=== PATIENT | male | born 1965 | race Caucasian/White ===

== ENCOUNTER 2019-07-21 14:22 | Outpatient (REF) | payer OTHER, SELFPAY ==
[2019-07-21 22:28] LABS: ALT 24 U/L (16-63); AST 19 U/L (15-37); Albumin 4.1 g/dL (3.4-5.0); Alkaline Phosphatase 82 U/L (46-116); Anion Gap 9.7 mmol/L (3-11); BUN 17 mg/dL (7-18); CO2 27.3 mmol/L (21.0-32.0); Calcium 8.9 mg/dL (8.5-10.1); Chloride 106 mmol/L (98-107); Glucose 95 mg/dL (70-100); Potassium 4.3 mmol/L (3.5-5.1); Sodium 143 mmol/L (136-145); TSH (W/Ref FT4) 2.31 uIU/mL (0.36-3.74); Total Protein 7.3 g/dL (6.4-8.2)
[2019-07-23 10:53] LABS: Hepatitis C Ab w Rflx HCV PCR Negative (NEGAT)
[2019-07-23 13:25] LABS: Vitamin D 25 Total 47.8 ng/ml (30-100)
== END 2019-07-21 14:42 ==
LOC: NCHCN 14:22
PROVIDERS: PCP Internal Medicine; Visit Provider Specialist/Technologist Athletic Trainer
DX: Z00.00 Encounter for general adult medical examination without abnormal findings (principal); F43.0 Acute stress reaction; F31.9 Bipolar disorder, unspecified; Z11.59 Encounter for screening for other viral diseases
CPT/HCPCS: 80053; 82306; 86803; 84443

== ENCOUNTER 2020-02-15 13:20 | Outpatient (REF) | payer OTHER, SELFPAY ==
[2020-02-17 11:32] LABS: PSA, Screening 0.7 ng/mL (0.0-3.5)
== END 2020-02-15 13:40 ==
LOC: NCHCN 13:20
PROVIDERS: PCP Internal Medicine; Visit Provider Nurse Practitioner Family
DX: Z12.5 Encounter for screening for malignant neoplasm of prostate (principal); N41.1 Chronic prostatitis
CPT/HCPCS: 84153

== ENCOUNTER 2021-03-20 02:39 | Outpatient (CLI) | payer OTHER, SELFPAY ==
[2021-03-20 21:39] LABS: PSA, Screening 0.7 ng/mL (0.0-3.5)
== END 2021-03-20 02:40 | disposition home or self-care (01) ==
LOC: LBO 02:39
PROVIDERS: PCP Internal Medicine; Visit Provider Nurse Practitioner Gerontology
DX: Z12.5 Encounter for screening for malignant neoplasm of prostate (principal); Z80.42 Family history of malignant neoplasm of prostate
CPT/HCPCS: 36415; 84153

== ENCOUNTER 2021-04-21 14:22 | Outpatient (REF) | payer OTHER, SELFPAY ==
[2021-04-21 20:48] LABS: HGB 14.5 g/dL (13.5-17.5); MCH 29.7 pg (27.0-33.0); MCHC 33.7 % (32.0-36.0); MCV 87.9 fL (80-95); MPV 10.4 fL (8.0-11.0); Platelet Count 246 10^3/uL (130-400); RBC 4.89 10^6/uL (4.36-5.78); RDW 11.9 % (11.8-14.1); RDW-SD 38.3 fL; WBC 5.19 10^3/uL (4.4-10.8)
[2021-04-21 20:54] LABS: Anion Gap 8.4 mmol/L (3-11); BUN 20 mg/dL (7-18); CO2 25.6 mmol/L (21.0-32.0); CREATININE 0.9 mg/dL (0.70-1.30); Calcium 8.9 mg/dL (8.5-10.1); Chloride 107 mmol/L (98-107); Glucose 97 mg/dL (74-106); Potassium 4.5 mmol/L (3.5-5.1); Sodium 141 mmol/L (136-145)
== END 2021-04-21 14:23 | disposition home or self-care (01) ==
LOC: NCHCN 14:22
PROVIDERS: PCP Internal Medicine; Visit Provider Family Medicine
DX: F31.9 Bipolar disorder, unspecified (principal)
CPT/HCPCS: 80048; 85027

== ENCOUNTER 2021-06-21 17:08 | Outpatient (REF) | payer OTHER, SELFPAY ==
[2021-06-21 21:32] LABS: Lithium 0.6 mmol/l (0.6-1.2)
[2021-06-21 21:41] LABS: BUN 22 mg/dL (7-18); CREATININE 1.2 mg/dL (0.70-1.30); Calcium 8.9 mg/dL (8.5-10.1); Chloride 107 mmol/L (98-107); Glucose 92 mg/dL (74-106); Potassium 4.3 mmol/L (3.5-5.1); Sodium 141 mmol/L (136-145); TSH 2.17 uIU/mL (0.36-3.74)
== END 2021-06-21 17:09 | disposition home or self-care (01) ==
LOC: NCHCN 17:08
PROVIDERS: PCP Internal Medicine; Referring Provider Family Medicine; Visit Provider Family Medicine
DX: F31.9 Bipolar disorder, unspecified (principal)
CPT/HCPCS: 80048; 80178; 84443

== ENCOUNTER 2022-01-01 17:49 | Outpatient (REF) | payer OTHER, SELFPAY ==
[2022-01-01 21:08] LABS: Anion Gap 6.9 mmol/L (3-11); BUN 25 mg/dL (7-18); CO2 28.1 mmol/L (21.0-32.0); CREATININE 1.2 mg/dL (0.70-1.30); Calcium 9.1 mg/dL (8.5-10.1); Chloride 108 mmol/L (98-107); Glucose 145 mg/dL (74-106); Sodium 143 mmol/L (136-145); TSH (W/Ref FT4) 3.44 uIU/mL (0.36-3.74)
[2022-01-01 21:22] LABS: Lithium 0.5 mmol/l (0.6-1.2)
== END 2022-01-01 17:50 | disposition home or self-care (01) ==
LOC: NCHCN 17:49
PROVIDERS: PCP Internal Medicine; Visit Provider Family Medicine
DX: F31.9 Bipolar disorder, unspecified (principal); M54.59 Other low back pain
CPT/HCPCS: 80048; 80178; 84443

== ENCOUNTER 2022-10-10 13:08 | Outpatient (REF) | payer OTHER, SELFPAY ==
[2022-10-10 15:18] LABS: Lithium 0.5 mmol/l (0.6-1.2)
[2022-10-10 15:25] LABS: Anion Gap 3.5 mmol/L (3-11); BUN 18 mg/dL (7-18); CO2 29.5 mmol/L (21.0-32.0); CREATININE 0.9 mg/dL (0.70-1.30); Calcium 9.1 mg/dL (8.5-10.1); Chloride 109 mmol/L (98-107); Estimated GFR 99.62 (mL/min/1.73m2); Glucose 101 mg/dL (74-106); Potassium 4.9 mmol/L (3.5-5.1); Sodium 142 mmol/L (136-145); TSH (W/Ref FT4) 3.48 uIU/mL (0.36-3.74)
== END 2022-10-10 13:09 | disposition home or self-care (01) ==
LOC: NCHCN 13:08
PROVIDERS: PCP Family Medicine; Visit Provider Family Medicine
DX: F31.9 Bipolar disorder, unspecified (principal); F41.8 Other specified anxiety disorders; Z51.81 Encounter for therapeutic drug level monitoring; Z79.899 Other long term (current) drug therapy
CPT/HCPCS: 80048; 80178; 84443

== ENCOUNTER 2022-11-19 15:12 | Outpatient (REF) | payer OTHER, SELFPAY ==
[2022-11-19 18:12] LABS: PSA, Screening 0.9 ng/mL (<=3.5)
== END 2022-11-19 15:13 | disposition home or self-care (01) ==
LOC: LBN 15:12
PROVIDERS: PCP Family Medicine; Visit Provider Nurse Practitioner Gerontology
DX: N41.1 Chronic prostatitis (principal); Z12.5 Encounter for screening for malignant neoplasm of prostate; Z80.42 Family history of malignant neoplasm of prostate; G89.4 Chronic pain syndrome
CPT/HCPCS: 84153

== ENCOUNTER 2023-01-03 01:21 | Outpatient (CLI) | payer OTHER, SELFPAY ==
--- NOTE | 2023-01-03 07:00 | DI.RAD_ITS ---
Exam(s) XR FOOT RT COMPLETE EXAM: XR FOOT RT COMPLETE CLINICAL HISTORY: foot pain,capsulitis, m79.673,m77.9. TECHNIQUE: 2D digital imaging was performed. Three views. COMPARISON: No exams were available for comparison FINDINGS: BONES: No acute fracture is present. No bony destructive lesion is seen. JOINTS: No dislocation present. No significant degenerative changes. Plantar arch and. SOFT TISSUE: Normal. IMPRESSION: Unremarkable radiographs of the right foot. DATA REPOSITORY: RADIATION DOSE DELIVERED:
== END 2023-01-03 01:41 ==
LOC: DI 01:21
PROVIDERS: PCP Family Medicine; Visit Provider Podiatrist Foot & Ankle Surgery
DX: M79.671 Pain in right foot; M77.51 Other enthesopathy of right foot and ankle
CPT/HCPCS: 73630

== ENCOUNTER 2023-04-15 12:45 | Outpatient (REF) | payer OTHER, SELFPAY ==
[2023-04-15 15:48] LABS: Lithium 0.7 mmol/l (0.6-1.2)
[2023-04-15 15:59] LABS: Anion Gap 5.6 mmol/L (3-11); BUN 24 mg/dL (7-18); CO2 28.4 mmol/L (21.0-32.0); CREATININE 0.9 mg/dL (0.70-1.30); Calcium 8.9 mg/dL (8.5-10.1); Chloride 107 mmol/L (98-107); Estimated GFR 99.62 (mL/min/1.73m2); Glucose 106 mg/dL (74-106); Potassium 4.6 mmol/L (3.5-5.1); Sodium 141 mmol/L (136-145); TSH (W/Ref FT4) 2.51 uIU/mL (0.36-3.74)
== END 2023-04-15 12:46 | disposition home or self-care (01) ==
LOC: NCHCN 12:45
PROVIDERS: PCP Family Medicine; Visit Provider Family Medicine
DX: Z51.81 Encounter for therapeutic drug level monitoring (principal); Z00.00 Encounter for general adult medical examination without abnormal findings
CPT/HCPCS: 80048; 80178; 84443

== ENCOUNTER 2024-07-08 02:10 | Outpatient (CLI) | payer OTHER, SELFPAY ==
[2024-07-08 08:24] LABS: HCT 40.5 % (40.0-50.0); HGB 13.8 g/dL (13.5-17.5); MCH 30.2 pg (27.0-33.0); MCHC 34.1 % (32.0-36.0); MCV 89 fL (80-95); MPV 9.3 fL (8.0-11.0); Platelet Count 236 10^3/uL (130-400); RBC 4.57 10^6/uL (4.36-5.78); RDW-SD 38.9 fL; WBC 4.49 10^3/uL (4.4-10.8)
[2024-07-08 08:54] LABS: ALT 19 U/L (16-63); AST 15 U/L (15-37); Albumin 3.8 g/dL (3.4-5.0); Alkaline Phosphatase 99 U/L (46-116); Anion Gap 5.5 mmol/L (3-11); BUN 20 mg/dL (7-18); Bilirubin, Total 0.68 mg/dL (0.2-1.0); CO2 28.5 mmol/L (21.0-32.0); CREATININE 1.1 mg/dL (0.70-1.30); Calculated LDL 99 mg/dL (<100); Chloride 106 mmol/L (98-107); Cholesterol 163 mg/dL (<200); Estimated GFR 77.33 (mL/min/1.73m2); Glucose 105 mg/dL (74-106); HDL Cholesterol 52 mg/dL (40-60); Potassium 4.4 mmol/L (3.5-5.1); Sodium 140 mmol/L (136-145); TSH (W/Ref FT4) 4.29 uIU/mL (0.36-3.74); Total Protein 7.4 g/dL (6.4-8.2); Triglyceride 60 mg/dL (<150)
[2024-07-08 09:11] LABS: Lithium 0.5 mmol/L (0.6-1.2)
[2024-07-08 09:47] LABS: FREE T4 0.88 ng/dL (0.76-1.46)
== END 2024-07-08 02:11 | disposition home or self-care (01) ==
LOC: LBO 02:10
PROVIDERS: PCP Family Medicine; Visit Provider Family Medicine
DX: Z00.00 Encounter for general adult medical examination without abnormal findings (principal); F31.9 Bipolar disorder, unspecified
CPT/HCPCS: 36415; 80053; 80061; 85027; 80178; 84439; 84443

== ENCOUNTER 2024-11-23 18:47 | Observation (INO) | payer OTHER, SELFPAY ==
[2024-11-23 18:48] VITALS: BP 158/93; PULSE 64; RESP 18; TEMP 36.6; O2SAT 98
--- NOTE | 2024-11-23 19:11 | ED.GENADUL_ITS ---
Discharge Plan Disposition Patient Disposition: Admit to [facility] Condition: Stable Discharge Details Chief Complaint: Abd Prob Clinical Impression: Acute appendicitis Primary Care Provider: Luis Noble ED Provider: Prudencio Melvin Home Meds and New Rx's Prescriptions: No Action lamotrigine 25 mg tablet 25 mg PO TID lithium carbonate [Lithobid] 300 mg tablet extended release See Rx Instructions PO DAILY Rx Instructions: 300mg Qam and 600mg Qpm orally daily; multivitamin Tablet 1 tab PO DAILY omega 2-vea-rmx-fish oil [Fish Oil] 1,000 mg (120 mg-180 mg) capsule 1 cap PO DAILY ascorbic acid (vitamin C) 1,000 mg tablet 1 g PO DAILY coenzyme Q10 [Co Q-10] 30 mg capsule 60 mg PO DAILY cholecalciferol (vitamin D3) 10 mcg/mL (400 unit/mL) drops 10 mcg PO DIRECTED HPI General Mode of arrival: ambulatory . Date/Time Provider Initiated Documentation: 11/23/24 18:48 . Limitations to Documentation: no limitations . Information obtained by: patient . History of Present Illness 59 year old M presents to the emergency department with the chief complaint of rlq pain, described as moderate, Quality is described as sharp, Patient abdomen. Patient started experiencing this day(s) (2) and it has been intermittent. No relieving factors improve symptom(s), No exacerbating factors reported . Patient notes denies chest pain, nausea/vomiting and shortness of breath. Patient did receive the following treatments prior to arrival, none Related Data Home Medications ?Medication ?Instructions ?Recorded ?Confirmed ascorbic acid (vitamin C) 1,000 mg 1 g PO DAILY 04/06/22 11/23/24 tablet cholecalciferol (vitamin D3) 10 10 mcg PO DIRECTED 04/06/22 11/23/24 mcg/mL (400 unit/mL) oral drops coenzyme Q10 30 mg capsule (Co 60 mg PO DAILY 04/06/22 11/23/24 Q-10) multivitamin 1 tab PO DAILY 04/06/22 11/23/24 omega 2-idl-osy-fish oil 1,000 mg 1 cap PO DAILY 04/06/22 11/23/24 (120 mg-180 mg) capsule (Fish Oil) lamotrigine 25 mg tablet 25 mg PO TID 05/10/22 11/23/24 lithium carbonate 300 mg See Rx Instructions PO DAILY 12/31/22 11/23/24 tablet,extended release (Lithobid) Allergies Allergy/AdvReac Type Severity Reaction Status Date / Time No Known Allergies Allergy Verified 11/23/24 18:51 General Stated Complaint: Abd Prob LYLA: 3 Review of Systems All systems reviewed & are unremarkable except as noted in HPI and below Constitutional Constitutional: Denies chills, Denies fever(s) and Denies weakness Cardiovascular Cardiovascular: Denies chest pain and Denies dyspnea Respiratory Respiratory: Denies cough and Denies dyspnea Gastrointestinal Gastrointestinal: Reports abdominal pain, Denies nausea and Denies vomiting Integumentary/Breasts Skin/Breast: Denies rash Neurologic Neurologic: Denies weakness Exam Const General: no acute distress Orientation: alert HENMT Head: normal to inspection Ears: external ears normal General nose exam: external nose normal Mouth: moist mucous membranes Eyes General: appearance normal, both eyes and all related structures Neck Neck: normal visual inspection Resp Effort & Inspection: normal respiratory effort and able to speak in complete sentences Cardio Rate: regular rate GI Palpation: soft and tender Skin General skin exam: no rashes or lesions noted Neuro General: patient alert and patient oriented x3 Extrem General: normal to inspection Psych Mental Status: mental status grossly normal Course Vital Signs Vital signs: Vital Signs Temperature 36.6 C 11/23/24 18:48 Pulse 64 11/23/24 18:48 Respiratory Rate 18 11/23/24 18:48 Blood Pressure 158/93 H 11/23/24 18:48 Pulse Oximetry 98 11/23/24 18:48 Temperature 36.6 C 11/23/24 18:48 Temperature Source Oral 11/23/24 18:48 Pulse 64 11/23/24 18:48 Respiratory Rate 18 11/23/24 18:48 Blood Pressure 158/93 H 11/23/24 18:48 Blood Pressure Position Sitting 11/23/24 18:48 Pulse Oximetry 98 11/23/24 18:48 Oxygen Delivery Method Room Air 11/23/24 18:48 Oxygen Flow Rate 0 11/23/24 18:48 Pain Level 6 11/23/24 18:48 Medical Decision Making 59-year-old male with a history of bipolar, depression, denies any prior abdominal surgeries comes in with several days of right lower quadrant pain. He says the pain is intermittent and usually only mild and worse has been 6 out of 10. He denies any changes in urinary bowel habits. No vomiting. No fevers. He is well-appearing speaking in full sentences. His abdomen is soft and nondistended. He has no left lower quadrant tenderness but does have right lower quadrant tenderness without guarding. Given the location of the pain we will proceed with CBC, CMP, lipase and CT abdomen pelvis to evaluate for possible appendicitis. Patient stable, CT shows signs of early appendicitis with enlarged appendix which measures up to 10 mm some mild inflammatory stranding no abscess or perforation. Discussed with patient and he is agreeable to admission for appendectomy. Will consult with general surgery. Differential Diagnosis Differential Diagnosis: Colitis, appendicitis, kidney stone Quality:SDOH Health Related Social Needs: No Data to Display PFSH All Active Problems (Updated 11/23/24 @ 21:08 by Prudencio Melvin MD) Acute appendicitis (Acute) Metatarsalgia, right foot (Acute) Hallux limitus of right foot (Acute) Achilles tendon contracture, bilateral (Acute) Foot pain (Acute) Capsulitis (Acute) Conductive hearing loss in left ear (Acute) Otosclerosis of left ear (Acute) Family history of prostate cancer (Acute) father Chronic prostatitis/chronic pelvic pain syndrome (Acute) Medical History Acute low back pain Olecranon bursitis, right elbow Bipolar 1 disorder Situational anxiety Knee joint pain Depression with anxiety Melanoma Surgical History S/P left knee arthroscopy H/O melanoma excision Family History Father Prostate cancer Skin cancer Social History Smoking/Tobacco Use Status: Never Smoking risk assessment performed?: Yes Alcohol Intake: current Alcohol Intake frequency: a few times a week Drug use: Occasionally Substance use type: marijuana Housing: house Do you feel safe at home: Yes Do you feel safe in your relationship?: Yes
[2024-11-23 19:19] LABS: Abs Immature Grans 0.01 10^3/uL (0.0-0.06); Absolute Basophil Count 0.04 10^3/uL (0.0-0.2); Absolute Eosinophil Count 0.22 10^3/uL (0.0-0.7); Absolute Lymphocyte Count 1.37 10^3/uL (1.2-3.4); Basophils % 0.9 %; Eosinophils % 4.7 %; HCT 40.4 % (40.0-50.0); HGB 13.5 g/dL (13.5-17.5); Immature Grans % 0.2 %; Lymphocytes % 29.5 %; MCH 29.9 pg (27.0-33.0); MCHC 33.4 % (32.0-36.0); MCV 89 fL (80-95); MPV 9.2 fL (8.0-11.0); Monocytes % 10.8 %; Neutrophils % 53.9 %; Platelet Count 244 10^3/uL (130-400); RBC 4.52 10^6/uL (4.36-5.78); RDW 12.5 % (11.8-14.1); RDW-SD 41.1 fL; WBC 4.64 10^3/uL (4.4-10.8)
--- NOTE | 2024-11-23 19:34 | DI.CT_ITS ---
Exam(s) CT ABDOMEN PELVIS W EXAM: CT ABDOMEN PELVIS W CLINICAL HISTORY: rlq abdominal pain TECHNIQUE: Imaging Protocol: Axial computed tomography images with coronal and sagittal reformatted images were created and reviewed. CONTRAST MATERIAL: Intravenous: Omnipaque 350 Contrast volume:100 mL Oral: No COMPARISON: No exams were available for comparison FINDINGS: ABDOMEN: Lung Bases: There is a calcified granuloma in the right lower lobe. Liver: Normal density. There are 2 small cysts in the liver. No suspicious hepatic masses are present . Portal, Superior Mesenteric, and Splenic Veins: Unremarkable. Gallbladder and Biliary Tract: No radiodense calculus or dilation. Pancreas: Normal density, no abnormal calcifications or inflammatory process. Spleen: Normal. Adrenals: No masses seen. Kidneys: Normal size, contour and axis. No radiodense stones or obstructive uropathy. No masses seen. Abdominal Aorta: Abdominal portion non-dilated. Mild atherosclerotic calcification is present. Bowel: No obstruction or bowel wall thickening. The appendix measures 1.2 cm. There are mild Zonia serafin endiceal inflammatory changes present. The findings are most suggestive of acute appendicitis. No abs cess or pneumoperitoneum. Peritoneal Cavity: No ascites, collection or mesenteric inflammatory response. No free air. Lymph Nodes: Within normal limits. Bones: Within normal limits for the patient's age. Soft Tissues: Unremarkable. PELVIS: Bladder: Symmetric distention, no gross wall thickening. Reproductive Organs: Unremarkable as visualized. Lymph Nodes: Within normal limits. Bones: Within normal limits for the patient's age. IMPRESSION: Acute appendicitis. No abscess or free air. RADIATION DOSE DELIVERED: 417.45mGy.cm Total DLP DATA REPOSITORY: All CT scans at this facility are submitted to the National Radiology Data Registry (NRDR) Dose Index Registry (DIR) with the [employer] (ACR). RADIATION OPTIMIZATION: All CT scans at this facility use at least one of these dose optimization te chniques: automated exposure control; mA and/or kV adjustment per patient size (includes targeted exa ms where dose is matched to clinical indication); or iterative reconstruction.
[2024-11-23 19:48] LABS: ALT 30 U/L (16-63); AST 16 U/L (15-37); Albumin 3.8 g/dL (3.4-5.0); Alkaline Phosphatase 102 U/L (46-116); Anion Gap 3.1 mmol/L (3-11); BUN 22 mg/dL (7-18); Bilirubin, Total 0.52 mg/dL (0.2-1.0); CO2 29.9 mmol/L (21.0-32.0); Chloride 110 mmol/L (98-107); Glucose 94 mg/dL (74-106); Lipase 74 U/L (<78); Potassium 4.3 mmol/L (3.5-5.1); Sodium 143 mmol/L (136-145); Total Protein 7.4 g/dL (6.4-8.2)
[2024-11-23 19:51] LABS: Bilirubin Negative (Negative); Blood Negative (Negative); Clarity Clear (Clear); Glucose Negative (Negative); Ketones Negative (Negative); Leukocyte Esterase Negative (Negative); Nitrite Negative (Negative); Urobilinogen 0.2 mg/dL (Up to 0.2); pH 5.5 (5-8)
--- NOTE | 2024-11-23 20:28 | DI.VRAD_ITS ---
Addendum created by Steven Rosenberg MD on 11/23/2024 8:40:44 PM EST: THIS REPORT CONTAINS FINDINGS THAT MAY BE CRITICAL TO PATIENT CARE. The findings were verbally communicated by me to Prudencio Melvin via telephone conference at 8:40 PM EST on 11/23/2024. The findings were acknowledged and understood. Initial report created on 11/23/2024 8:28:04 PM EST: PROCEDURE INFORMATION: Exam: CT Abdomen And Pelvis With Contrast Exam date and time: 11/23/2024 7:16 PM Age: 59 years old Clinical indication: Other: Rlq abdominal pain TECHNIQUE: Imaging protocol: Computed tomography of the abdomen and pelvis with contrast. Contrast material: OMNIPAQUE 350; Contrast volume: 75 ml; Contrast route: INTRAVENOUS (IV); COMPARISON: No relevant prior studies available. FINDINGS: Lungs: Visualized lung bases are clear. Liver: Normal. No mass or intrahepatic biliary ductal dilatation. Gallbladder and biliary ducts: Normal. No calcified stones. No ductal dilation. Pancreas: Normal. No mass or ductal dilation. Spleen: Normal. No splenomegaly. Adrenal glands: Normal. No mass. Kidneys and ureters: Normal. No hydronephrosis, calculus, cyst or mass. Stomach and bowel: Unremarkable. No significant dilatation or obstruction. No mucosal thickening or visible mass. Appendix: The appendix is thickened to 10 mm with mild associated inflammatory stranding. No abscess or perforation. Intraperitoneal space: Unremarkable. No free air. No significant fluid collection. Vasculature: Unremarkable. No abdominal aortic aneurysm or significant atherosclerosis. Lymph nodes: Small right lower quadrant mesenteric lymph nodes measuring up to 10 mm. Urinary bladder: No mass or wall thickening. Reproductive: Unremarkable as visualized. Bones/joints: Unremarkable. No acute fracture. No lytic lesion. Soft tissues: Unremarkable. IMPRESSION: Thickened appendix suspicious for early acute appendicitis. Dictated and Authenticated by: Steven Rosenberg MD. Orderin Olegario Flannery MD
[2024-11-23] MEDS: Normal Saline - Diluent 50 ML VIAL IJ (20:46)
[2024-11-23] MEDS: Omnipaque 350 MG/ML 100 ML BTL 75 ML IJ (20:47)
--- NOTE | 2024-11-23 21:10 | SCONE_ITS ---
Date of service: 11/23/24 Time of Service: 21:10 Assessment and Plan Assessment and plan (1) Acute appendicitis: Status: Acute Assessment and plan: 59 yo man with acute appendicitis on imaging and clinically. Etiology could be post-viral mesenteric lymph node swelling. HD stable and without acute abdomen. PLAN: IV abx Lap appendectomy in the morning. History of Present Illness Narrative: 59 yo with abdominal pain x2 days. CT shows inflammatory changes around the appendix. PFSH All Active Problems (Updated 11/23/24 @ 21:08 by Prudencio Melvin MD) Acute appendicitis (Acute) Metatarsalgia, right foot (Acute) Hallux limitus of right foot (Acute) Achilles tendon contracture, bilateral (Acute) Foot pain (Acute) Capsulitis (Acute) Conductive hearing loss in left ear (Acute) Otosclerosis of left ear (Acute) Family history of prostate cancer (Acute) father Chronic prostatitis/chronic pelvic pain syndrome (Acute) Medical History Acute low back pain Olecranon bursitis, right elbow Bipolar 1 disorder Situational anxiety Knee joint pain Depression with anxiety Melanoma Surgical History S/P left knee arthroscopy H/O melanoma excision Family History Father Prostate cancer Skin cancer Social History Smoking/Tobacco Use Status: Never Smoking risk assessment performed?: Yes Alcohol Intake: current Alcohol Intake frequency: a few times a week Drug use: Occasionally Substance use type: marijuana Housing: house Do you feel safe at home: Yes Do you feel safe in your relationship?: Yes Exam Narrative Exam Narrative: Reportedly HD stable, not toxic. Abdomen: Soft, mild tenderness but no peritoneal signs. Results Last Vital Signs Temp 97.9 F 11/23/24 18:48 Pulse 64 11/23/24 18:48 Resp 18 11/23/24 18:48 BP 158/93 H 11/23/24 18:48 Pulse Ox 98 11/23/24 18:48 Labs 11/23/24 19:10 11/23/24 19:10 Labs: Laboratory Results - last 24 hr 11/23/24 11/23/24 19:10 19:44 WBC 4.64 RBC 4.52 Hgb 13.5 Hct 40.4 MCV 89 MCH 29.9 MCHC 33.4 RDW 12.5 Plt Count 244 MPV 9.2 Immature Gran % 0.2 Neutrophils % 53.9 Lymphocytes % 29.5 Monocytes % 10.8 Eosinophils % 4.7 Basophils % 0.9 Nucleated RBC % 0.0 Absolute Neutrophils 2.50 Absolute Lymphocytes 1.37 Absolute Monocytes 0.50 Absolute Eosinophils 0.22 Absolute Basophils 0.04 Sodium 143 Potassium 4.3 Chloride 110 H Carbon Dioxide 29.9 Anion Gap 3.1 BUN 22 H Creatinine 1.0 Est GFR (CKD-EPI 2020) 86.70 Glucose 94 Calcium 9.0 Magnesium 2.0 Total Bilirubin 0.52 AST 16 ALT 30 Alkaline Phosphatase 102 Total Protein 7.4 Albumin 3.8 Lipase 74 Urine Color Yellow Urine Clarity Clear Urine pH 5.5 Ur Specific [place] 1.020 Urine Protein Negative Urine Ketones Negative Urine Blood Negative Urine Nitrite Negative Urine Bilirubin Negative Urine Urobilinogen 0.2 Ur Leukocyte Esterase Negative Urine Glucose Negative
[2024-11-23 21:22] VITALS: PULSE 64; O2SAT 97
[2024-11-23 21:23] VITALS: BP 144/110; PULSE 62; O2SAT 99
[2024-11-23 21:24] VITALS: BP 145/90; PULSE 64
--- NOTE | 2024-11-23 21:49 | W.PC.ACHO ---
Registration Status: Primary Language: Preferred Language: ED Information & Data Chief Complaint Abd Prob 11/23/24 19:11 Triage Note Sent from [facility], 11/23/24 18:48 concerns for appendicitis. c /o RLQ pain, started saturday morning, no n/v/d, normal bowel movements, no S&S. states worse after eats. 6/10 pain, comes and goes. no meds [employer]. Medical / Surgical History (Last Reviewed 12/25/23 @ 09:25 by Mari Matthews DNP) Acute low back pain Olecranon bursitis, right elbow Bipolar 1 disorder Situational anxiety Knee joint pain Depression with anxiety Melanoma (Last Reviewed 12/25/23 @ 09:25 by Mari Matthews DNP) S/P left knee arthroscopy H/O melanoma excision Most Recent Vital Signs Temperature 36.6 C 11/23/24 18:48 Temperature Source Oral 11/23/24 18:48 Pulse 64 11/23/24 21:24 Respiratory Rate 18 11/23/24 18:48 Blood Pressure 145/90 H 11/23/24 21:24 Blood Pressure Mean 109 11/23/24 21:24 Blood Pressure Position Sitting 11/23/24 18:48 Pulse Oximetry 99 11/23/24 21:23 Oxygen Delivery Method Room Air 11/23/24 18:48 Oxygen Flow Rate 0 11/23/24 18:48 Pain Level 6 11/23/24 18:48 Allergies No Known Allergies Allergy (Verified 11/23/24 18:51) Precautions Isolation Standard precaution 11/23/24 18:50 Active Medications Generic Name Dose Route Start Last Admin Trade Name Becky PRN Reason Stop Dose Admin Iohexol 75 ml 11/23/24 21:00 11/23/24 20:47 Omnipaque 350 Mg/Ml 100 Ml Btl IJ 12/23/24 23:59 75 ml DIRECTED INDRA Administration Sodium Chloride 50 ml 11/23/24 21:00 11/23/24 20:46 Normal Saline - Diluent 50 Ml Vial IJ 50 ml .FOR DI USE INDRA Administration IV IV Catheter Type [Right Saline Lock Antecubital] IV Catheter Gauge [Right 18 Antecubital] Diet Orders Category Date Time Status Nothing Per Oral [DIET] Nutrition 11/23/24 Dinner Active Diagnostics 11/23/24 11/23/24 Range/Units 19:44 19:10 WBC 4.64 (4.4-10.8) 10^3/uL RBC 4.52 (4.36-5.78) 10^6/uL Hgb 13.5 (13.5-17.5) g/dL Hct 40.4 (40.0-50.0) % MCV 89 (80-95) fL MCH 29.9 (27.0-33.0) pg MCHC 33.4 (32.0-36.0) % RDW 12.5 (11.8-14.1) % Plt Count 244 (130-400) 10^3/uL MPV 9.2 (8.0-11.0) fL Immature Gran % 0.2 % Neutrophils % 53.9 % Lymphocytes % 29.5 % Monocytes % 10.8 % Eosinophils % 4.7 % Basophils % 0.9 % Nucleated RBC % 0.0 (0.0-0.3) % Absolute Neutrophils 2.50 (1.2-6.7) 10^3/uL Absolute Lymphocytes 1.37 (1.2-3.4) 10^3/uL Absolute Monocytes 0.50 (0.1-0.8) 10^3/uL Absolute Eosinophils 0.22 (0.0-0.7) 10^3/uL Absolute Basophils 0.04 (0.0-0.2) 10^3/uL Sodium 143 (136-145) mmol/L Potassium 4.3 (3.5-5.1) mmol/L Chloride 110 H (98-107) mmol/L Carbon Dioxide 29.9 (21.0-32.0) mmol/L Anion Gap 3.1 (3-11) mmol/L BUN 22 H (7-18) mg/dL Creatinine 1.0 (0.70-1.30) mg/dL Est GFR (CKD-EPI 2020) 86.70 (mL/min/1.73m2) Glucose 94 (74-106) mg/dL Calcium 9.0 (8.5-10.1) mg/dL Magnesium 2.0 (1.8-2.4) mg/dL Total Bilirubin 0.52 (0.2-1.0) mg/dL AST 16 (15-37) U/L ALT 30 (16-63) U/L Alkaline Phosphatase 102 (46-116) U/L Total Protein 7.4 (6.4-8.2) g/dL Albumin 3.8 (3.4-5.0) g/dL Lipase 74 (<78) U/L Urine Color Yellow (Yellow) Urine Clarity Clear (Clear) Urine pH 5.5 (5-8) Ur Specific [place] 1.020 (1.005-1.025) Urine Protein Negative (Neg-Trace) mg/dL Urine Ketones Negative (Negative) mg/dL Urine Blood Negative (Negative) Urine Nitrite Negative (Negative) Urine Bilirubin Negative (Negative) Urine Urobilinogen 0.2 (Up to 0.2) mg/dL Ur Leukocyte Esterase Negative (Negative) Urine Glucose Negative (Negative) mg/dL Intake and Output - 24 Hour Total 11/23/24 18:47 thru 11/23/24 18:48 Weight 84.368 kg Falls Risk Assessment History of Falls No History 11/23/24 19:14 Contributing Factors No Factors 11/23/24 19:14 Ambulatory Aids Independent 11/23/24 19:14 Tubes/Lines None 11/23/24 19:14 Gait Evaluation No gait disturbance 11/23/24 19:14 Cognition No cognitive impairment 11/23/24 19:14 Fall Total Score 0 11/23/24 19:14 Level of Risk Standard/Low Risk 11/23/24 19:14 Problems (Last Reviewed 12/25/23 @ 09:25 by Mari Matthesw DNP) Acute appendicitis (Acute) v v v v v v v v v Sending and/or Receiving Nurses: Please use comment section below to note any information pertinent to the patient hand-off not included above. Information / Comments: Report received from: Francisco-- all questions asked, answered. Patient to go to [facility].
[2024-11-23 22:00] VITALS: BP 133/86; PULSE 63; RESP 16; TEMP 36.9; O2SAT 98
[2024-11-23] MEDS: Heparin 5,000 UNITS/ML VIAL 5000 UNITS SC (22:28)
[2024-11-23] MEDS: Normal Saline 1,000 ML 100 ML IV (22:29)
[2024-11-23] MEDS: Normal Saline Flush 10 ML SYR IVP (22:30)
[2024-11-23 22:42] VITALS: PULSE 63; RESP 16; TEMP 36.9; O2SAT 98
[2024-11-24] VITALS (27 sets, daily range): BP systolic 110–144; BP diastolic 75–95; PULSE 62–89; RESP 12–21; TEMP 36.4–37.1; O2SAT 94–99; BMI 28.5
[2024-11-24] MEDS: Heparin 5,000 UNITS/ML VIAL 5000 UNITS SC ×3 (05:44→22:15)
--- NOTE | 2024-11-24 08:20 | W.PM.PROGNOT ---
Date of Service Date of service: 11/24/24 Time of Service: 09:26 Assessment and Plan Assessment and plan (1) Acute appendicitis: Status: Acute Assessment and plan: 59-year-old man with acute appendicitis. We had a long and detailed discussion about management strategies. Overall I recommended laparoscopic appendectomy. The patient is in agreement with the indication, the likely benefits as well as the risks associated with surgery must proceed. Overall plan: Laparoscopic appendectomy Subjective Subjective Interval history since last seen: Patient's pain is drastically improved. Still sore when pushed on. No nausea. No vomiting. No fevers. He actually admits he thinks this happened to him once before earlier in the summer. It went away after couple days. Exam Narrative Exam Narrative: Gen: Non-toxic, comfortable and interactive Neuro: Alert and oriented x3 Psych: Good mood and affect. Good insight and understanding into condition. Chest: Non-labored breathing, no wheezing, no visible shortness of breath. Heart: Regular Abdomen: Soft, nondistended, focal tenderness at McBurney's point but no peritoneal signs. Objective Last Vital Signs Temp 98.8 F 11/24/24 07:34 Pulse 71 11/24/24 07:34 Resp 19 11/24/24 07:34 BP 110/83 11/24/24 07:34 Pulse Ox 98 11/24/24 07:34 Laboratory Results - last 24 hr 11/23/24 11/23/24 19:10 19:44 WBC 4.64 RBC 4.52 Hgb 13.5 Hct 40.4 MCV 89 MCH 29.9 MCHC 33.4 RDW 12.5 Plt Count 244 MPV 9.2 Immature Gran % 0.2 Neutrophils % 53.9 Lymphocytes % 29.5 Monocytes % 10.8 Eosinophils % 4.7 Basophils % 0.9 Nucleated RBC % 0.0 Absolute Neutrophils 2.50 Absolute Lymphocytes 1.37 Absolute Monocytes 0.50 Absolute Eosinophils 0.22 Absolute Basophils 0.04 Sodium 143 Potassium 4.3 Chloride 110 H Carbon Dioxide 29.9 Anion Gap 3.1 BUN 22 H Creatinine 1.0 Est GFR (CKD-EPI 2020) 86.70 Glucose 94 Calcium 9.0 Magnesium 2.0 Total Bilirubin 0.52 AST 16 ALT 30 Alkaline Phosphatase 102 Total Protein 7.4 Albumin 3.8 Lipase 74 Urine Color Yellow Urine Clarity Clear Urine pH 5.5 Ur Specific [place] 1.020 Urine Protein Negative Urine Ketones Negative Urine Blood Negative Urine Nitrite Negative Urine Bilirubin Negative Urine Urobilinogen 0.2 Ur Leukocyte Esterase Negative Urine Glucose Negative PAWSS Have you Been Recently Intoxicated or Drunk Within the Last 30 days?: No Have you Ever Experienced Previous Episodes of Alcohol Withdrawal?: No Have you ever Experienced Withdrawal Seizures?: No Have you ever Experienced Delirium Tremens(DT)s?: No Have you ever undergone Alcohol Rehabilitation Treatment (i.e, inpt ot outpatient treatment programs)?: No Have you ever Experienced Blackouts?: Yes Have you ever Combined Alcohol with other Downers within the last 90 days?: No Have you ever Combined Alcohol with any other Substance of Abuse during the last 90 days?: No Positive Blood Alcohol level on Presentation? [PCS.BAL]: No Evidence of Increased Autonomic Activity (i.e. HR>120, tremor, sweating, agitation, nausea)?: No Result: 1 Time Spent with Patient Time Spent with Patient: <25 minutes Time was spent: preparing to see the patient(eg.review tests), obtaining and/or reviewing separately otained hiistory, indepentently interpreting results, counseling the patient and care coordination
[2024-11-24] MEDS: ACETAMINOPHEN 1,000 MG/100 ML BAG 400 MG IVPB ×2 (09:25→21:07)
[2024-11-24] MEDS: Normal Saline 1,000 ML 100 ML IV (09:26)
[2024-11-24] MEDS: Normal Saline Flush 10 ML SYR IVP ×4 (09:26→22:23)
--- NOTE | 2024-11-24 14:32 | ANES.PREOP_ITS ---
General Info Date of Service Date Performed: 11/24/24 Height: 5 ft 10.5 in Weight: 91.7 kg Body Mass Index (BMI): 28.5 Surgical Procedure: Operation Date: 11/24/24 13:55 Proposed Procedure Side Surgeon p Appendectomy Laparoscopic Landen Lara MD Actual Procedure Side Surgeon p Appendectomy Laparoscopic Landen Lara MD Pre-Op Diagnosis Post-Op Diagnosis Acute appendicitis Meds Allergies and Home Medications Allergies Allergy/AdvReac Type Severity Reaction Status Date / Time No Known Allergies Allergy Verified 11/23/24 18:51 Home Medication ?Medication ?Instructions ?Recorded ascorbic acid (vitamin C) 1,000 mg 1 g PO DAILY 04/06/22 tablet cholecalciferol (vitamin D3) 10 10 mcg PO DIRECTED 04/06/22 mcg/mL (400 unit/mL) oral drops coenzyme Q10 30 mg capsule (Co 60 mg PO DAILY 04/06/22 Q-10) multivitamin 1 tab PO DAILY 04/06/22 omega 0-afx-xgg-fish oil 1,000 mg 1 cap PO DAILY 04/06/22 (120 mg-180 mg) capsule (Fish Oil) lamotrigine 25 mg tablet 25 mg PO TID 05/10/22 lithium carbonate 300 mg See Rx Instructions PO DAILY 12/31/22 tablet,extended release (Lithobid) Current Visit Medications: Current Medications Generic Name Dose Route Start Last Admin Trade Name Freq PRN Reason Stop Dose Admin Fentanyl 75 mcg 11/23/24 21:13 Fentanyl 100 Mcg/2 Ml Vial IVP Q1H PRN PRN Heparin Sodium (Porcine) 5,000 units 11/23/24 22:00 11/24/24 14:11 Heparin 5,000 Units/Ml Vial SC 5,000 units Q8H INDRA Administration Sodium Chloride 1,000 mls @ 100 mls/hr 11/23/24 21:15 11/24/24 09:26 Saline 1000ml Bag IV 100 mls/hr INFUSION INDRA Administration Ringer's Solution 1,000 mls @ 125 mls/hr 11/23/24 21:15 IV INFUSION INDRA Acetaminophen 1,000 mg in 100 mls @ 400 mls/hr 11/23/24 22:00 11/24/24 09:45 Ofirmev IVPB Infused Q6H INDRA Infusion Piperacillin Sod/Tazobactam 100 mls @ 200 mls/hr 11/24/24 04:00 11/24/24 12:27 Sod 4.5 gm/ Dextrose/Water IVPB Infused Q6H INDRA Infusion IV Miscellaneous Supplies 1 each 11/23/24 21:15 Iv Access IV DIRECTED INDRA Ketorolac Tromethamine 15 mg 11/23/24 21:19 Ketorolac 15 Mg/Ml Vial IVP 11/28/24 21:59 Q8H PRN Abdominal Pain Morphine Sulfate 2 mg 11/23/24 21:14 Morphine 2 Mg/Ml Syr IVP Q1H PRN PRN Ondansetron HCl 4 mg 11/23/24 21:14 Ondansetron 4 Mg/2 Ml Vial IVP Q4H PRN PRN Sodium Chloride 0 ml 11/23/24 21:13 Normal Saline Flush 10 Ml Syr IVP PRN PRN Sodium Chloride 0 ml 11/24/24 08:30 11/24/24 09:26 Normal Saline Flush 10 Ml Syr IVP 20 ml BID INDRA Administration Sodium Chloride 0 ml 11/23/24 21:13 Normal Saline 10 Ml Vial IJ DIRECTED PRN PFSH Active Problems Active Problems: Problem Status Onset Code Acute appendicitis Acute K35.80 Metatarsalgia, right foot Acute M77.41 Hallux limitus of right foot Acute M20.5X1 Achilles tendon contracture, bilateral Acute M67.01, M67.02 Foot pain Acute M79.673 Capsulitis Acute M77.9 Conductive hearing loss in left ear Acute H90.12 Otosclerosis of left ear Acute H80.92 Family history of prostate cancer Acute Z80.42 Chronic prostatitis/chronic pelvic pain syndrome Acute N41.1, G89.4 Medical History Medical History Acute low back pain Olecranon bursitis, right elbow Bipolar 1 disorder Situational anxiety Knee joint pain Depression with anxiety Melanoma Surgical History Surgical History S/P left knee arthroscopy H/O melanoma excision Tobacco Smoking/Tobacco Use Status: Never Alcohol Alcohol Intake: current Alcohol intake frequency: a few times a week Substance Use Substance use: Occasionally Substance use type: marijuana Vital Signs and Lab Results Vital Signs Most Recent Vital Signs in EMR: Most Recent Vital Signs Temp Pulse Resp BP Pulse Ox 36.5 C 70 18 124/91 H 94 11/24/24 11:04 11/24/24 11:04 11/24/24 11:04 11/24/24 11:04 11/24/24 11:04 Lab Results 11/23/24 19:10 11/23/24 19:10 Blood Type / Crossmatch: 2 No Data to Display Complete Blood Count: 2 White Blood Count 4.64 10^3/uL (4.4-10.8) 11/23/24 19:10 Red Blood Count 4.52 10^6/uL (4.36-5.78) 11/23/24 19:10 Hemoglobin 13.5 g/dL (13.5-17.5) 11/23/24 19:10 Hematocrit 40.4 % (40.0-50.0) 11/23/24 19:10 Platelet Count 244 10^3/uL (130-400) 11/23/24 19:10 Complete Metabolic Panel: 2 Sodium 143 mmol/L (136-145) 11/23/24 19:10 Potassium 4.3 mmol/L (3.5-5.1) 11/23/24 19:10 Chloride 110 mmol/L (98-107) H 11/23/24 19:10 Carbon Dioxide 29.9 mmol/L (21.0-32.0) 11/23/24 19:10 BUN 22 mg/dL (7-18) H 11/23/24 19:10 Creatinine 1.0 mg/dL (0.70-1.30) 11/23/24 19:10 Est GFR (CKD-EPI 2020) 86.70 (mL/min/1.73m2) 11/23/24 19:10 Magnesium 2.0 mg/dL (1.8-2.4) 11/23/24 19:10 Calcium 9.0 mg/dL (8.5-10.1) 11/23/24 19:10 Albumin 3.8 g/dL (3.4-5.0) 11/23/24 19:10 Glucose 94 mg/dL (74-106) 11/23/24 19:10 Liver Function Panel: 2 Alanine Aminotransferase (ALT/SGPT) 30 U/L (16-63) 11/23/24 19: 10 Aspartate Amino Transf (AST/SGOT) 16 U/L (15-37) 11/23/24 19:10 Coagulation Panel: 2 No Data to Display Cardiac Panel: 2 No Data to Display Arterial Blood Gas: 2 No Data to Display Venous Blood Gas: 2 No Data to Display Pancreas Panel: 2 Lipase 74 U/L (<78) 11/23/24 19:10 Thyroid Panel: 2 No Data to Display Infectious Disease: 2 No Data to Display Blood Cultures: 2 No Data to Display Toxicology Panel: 2 No Data to Display Anesthesia Assessment and Plan Anesthesia History Personal History: No History of Anesthesia Complications Family History: No Family History of Anesthesia Complications Exercise Tolerance Exercise Tolerance: Metabolic Equivalents>4 Pertinent Negatives Pertinent Negatives: No Symptoms of GERD Cardiac & Pulmonary Exam Cardiac Exam: Normal S1/S2 Heart Sounds Pulmonary Exam: Clear Bilateral Breath Sounds Implantable Cardiac Device Does patient have a Pacemaker or an ICD?: No Airway Exam Known Difficult Airway: No Mallampati Class: 2 Mouth Opening: Normal (> 3cm) Thyromental Distance: Greater than 3 cm Neck Range of Motion: Full ROM Neck Circumference: Normal Teeth Condition: Normal Dentition ASA Classification ASA Score: ASA 2 Emergency Case?: No NPO Status NPO Status: NPO Clears >2 hours, Solids >8 hours Anesthesia Plan Resuscitation Status: Full Code Anesthesia Technique: General Anesthesia Airway Planned: Endotracheal Tube Monitors Used: Standard Monitors and SedLine
[2024-11-24] MEDS: Lactated Ringers 1,000 ML 30 ML IV (14:54)
--- NOTE | 2024-11-24 15:09 | CHAPLAIN ---
Sahil was resting in bed, waiting to go to surgery to have his appendix removed when I visited this morning. He said his pain is mostly controlled except for a caffeine headache. I explained my role and offered support.
--- NOTE | 2024-11-24 15:37 | APP_PTH ---
PATIENT: Sahil Mace LOC: U#:[id number] AGE/SX: 59/M [facility]: Landen Lara : 1965 BED: A DIS: 11/25/2024 SPEC #: [id number] RECD: 11/24/24 18:11 STATUS: BARBARA REQ #: [id number] NICHOL: 11/24/24 15:[address]: Landen Lara DEPT: Surgical Specimen RECD BY: Allie Loya ENTERED: 11/24/24 18:12 SP TYPE: Appendix OTHR DR: Luis Noble Tissues: 1 - APPENDIX NOT INCIDENTAL Procedures: GROSS AND MICRO LEVEL 3 Comments: [id number]
[2024-11-24] MEDS: Bupivacaine 0.25% Pres-Free 30 ML VIAL (15:39)
[2024-11-24] MEDS: Bupivacaine LIPOSOME/PF 133 MG/10 ML VIAL IJ (15:39)
--- NOTE | 2024-11-24 15:43 | ROE_ITS ---
Operative Note Operative Note Refer to Anesthesia Record Procedure Description: Procedures performed: 1. Laparoscopic appendectomy 2. Bilateral TAP block Pre-op diagnosis: Acute appendicitis Postoperative diagnosis: Acute appendicitis Surgeon: Maribel Lara Anesthesia: Jonatan Mop Maker: Xochilt Indication for procedure: 59-year-old man with acute right lower quadrant abdominal pain for 24-36 hours and cross-sectional imaging showing a non-? perforated appendicitis FINDINGS: A non-perforated but very firm, indurated and inflamed appendix was removed in standard fashion. Specimens: 1. Appendix Complications: None Blood loss: 5-10 cc Urine output: Not measured Implants/drains: None Procedure in detail: Patient gave written consent and was in agreement with the indications, the likely benefits as well as the potential risks of surgery. He was taken back to the operating room where anesthesia was administered which was tolerated well. He was positioned supine on the operating room table and we then prepped and draped in sterile fashion. We did a time out. When we were all in agreement with our timeout we started the procedure. A mixture of Marcaine and Exparel was injected at the umbilicus. A 5mm incision and trocar were placed at the umbilicus under visualization. Insufflation was performed which was tolerated well. Another 5mm port was placed suprapubic and then I upsized the umbilical port to a 12mm port under visualization. Local a nesthetic was also given in each of the sites and then along the lateral sidewall bilateral under visualization as a TAP block. We turned our attention to the right lower quadrant where a inflamed, indurated but nonperforated appendix was easily identified. Using the LigaSure I divided the mesoappendix all the way up to the base of the appendix at the level of the cecum. With gentle, blunt, sweeping strokes and using my grasper I ensured that there was no appendicolith present at the base and the base also appeared healthy and viable. I passed the stapler across this and divided the appendix. It was placed in an Endo Catch bag and removed from the abdominal cavity. The specimen was passed off the back table and placed in formalin. The 12 mm port site was then closed with 0 Vicryl in the fascia using a Marcos-Gricelda. I rechecked for hemostasis in the right lower quadrant and it was excellent. The staple line looked perfect. I released/evacuated the pneumoperitoneum and then removed the other 5 mm trocar. The skin was closed with running Monocryl and Dermabond was placed on top of each site. Patient tolerated the procedure well. The sponge, instruments and sharps counts were correct x3 at the end of the procedure. He was extubated and taken to the PACU in hemodynamically stable condition. Date of Procedure: 11/24/24
--- NOTE | 2024-11-24 15:46 | DSE_ITS ---
Date of service: 11/24/24 Time of Service: 15:46 DS: Diagnosis Discharge Diagnosis (1) Acute appendicitis: Status: Acute Asessment and Plan: 59-year-old man who had acute, uncomplicated appendicitis. Status post laparoscopic appendectomy. Overall plan: Discharge home Discharge Plan Disposition Patient Disposition: Home Condition: Stable Condition: Good Discharge Details Reason For Visit: Acute Appendicitis Admit Date/Time: 11/23/24 21:13 Admit Provider: Landen Lara Attending Provider: Landen Lara Primary Care Provider: Luis Noble ty [facility] Course Hospital Course: 59-year-old man present to the emergency department with right lower quadrant pain. He was found to have acute appendicitis. He was taken to the operating room for laparoscopic appendectomy. After surgery he was set up for discharge home. Home Meds and New Rx's Prescriptions: No Action lamotrigine 25 mg tablet 25 mg PO TID lithium carbonate [Lithobid] 300 mg tablet extended release See Rx Instructions PO DAILY Rx Instructions: 300mg Qam and 600mg Qpm orally daily; multivitamin Tablet 1 tab PO DAILY omega 8-evl-dwl-fish oil [Fish Oil] 1,000 mg (120 mg-180 mg) capsule 1 cap PO DAILY ascorbic acid (vitamin C) 1,000 mg tablet 1 g PO DAILY coenzyme Q10 [Co Q-10] 30 mg capsule 60 mg PO DAILY cholecalciferol (vitamin D3) 10 mcg/mL (400 unit/mL) drops 10 mcg PO DIRECTED Discharge Instructions Additional Instructions: Incisions: Keep clean and dry but they do not need to be covered. It is okay to shower but no tub bathing for 1 week. You can peel the glue off after 1 week. Activity: As tolerated. There are no restrictions. Return to work, as tolerated in the next few days. If you need a work note call the surgery office. Diet: Regular diet as tolerated Medications: Resume all of your usual/regular home medications Follow-up: Follow-up in 3 weeks. Call and schedule Pain control: Take Tylenol, 1000 mg, every 6 hours on a schedule for the next 3 days. You can use ibuprofen in addition to Tylenol. No narcotics. Overall: Symptoms should not be worsening. If you have any difficulty breathing or you have return of symptoms of brought you to the hospital or your pain is otherwise worsening each day and you should call the doctor's office or come into the hospital to be checked out. Activity:: Activity as Tolerated Equipment/Supplies:: No Equipment Needed Diet:: As Tolerated DS: Summary Time Spent with Patient providing and/or coordinating discharge services: Less than 30 minutes Status at Discharge Functional status at discharge: independent ambulation Overall status at discharge: patient is progressing back to baseline Mental Status: mental status grossly normal Speech and Movement: speech and movement normal Mood: congruent mood Affect: normal affect Quality:SDOH Health Related Social Needs: Health related social needs feeling lonely/isolated (Z 60.8) Exam Psych Mental Status: mental status grossly normal Speech and Movement: speech and movement normal Mood: congruent mood Affect: normal affect DS: Data Vitals/I&O Vitals and I&O: Vital Signs Temperature 97.7 F 11/24/24 11:04 Temperature Source Temporal Artery Scan 11/24/24 11:04 Pulse 70 11/24/24 11:04 Pulse Rhythm Regular 11/23/24 22:00 Respiratory Rate 18 11/24/24 11:04 Respiratory Effort Normal, Non-Labored 11/23/24 22:00 Respiratory Depth Normal 11/23/24 22:00 Respiratory Pattern Normal 11/23/24 22:00 Blood Pressure 124/91 H 11/24/24 11:04 Blood Pressure Mean 109 11/23/24 21:24 Blood Pressure Position Sitting 11/23/24 18:48 Pulse Oximetry 94 11/24/24 11:04 Oxygen Delivery Method Room Air 11/24/24 11:04 Oxygen Flow Rate 0 11/24/24 11:04 Pain Level 4 11/24/24 12:44 Comment Notifying RN on bp 11/24/24 11:04 Intake & Output 11/23/24 11/24/24 11/24/24 23:59 11:59 23:59 Intake Total 400 / 400 1200 / 2000 800 / 2000 Output Total 125 / 125 275 / 275 Balance 275 / 275 925 / 1725 800 / 1725 Weight 202 lb 2.622 oz 202 lb 2.622 oz Intake: IV 100 / 100 1200 / 2000 800 / 2000 Oral 300 / 300 Output: Urine 125 / 125 275 / 275 Other: Urine Color Yellow Yellow Urine Appearance Clear Clear Urine Odor Normal Normal Data Completed and Pending Labs on day of discharge: Labs from last 24 hours 11/23/24 11/23/24 19:44 19:10 WBC 4.64 RBC 4.52 Hgb 13.5 Hct 40.4 MCV 89 MCH 29.9 MCHC 33.4 RDW 12.5 Plt Count 244 MPV 9.2 Immature Gran % 0.2 Neutrophils % 53.9 Lymphocytes % 29.5 Monocytes % 10.8 Eosinophils % 4.7 Basophils % 0.9 Nucleated RBC % 0.0 Absolute Neutrophils 2.50 Absolute Lymphocytes 1.37 Absolute Monocytes 0.50 Absolute Eosinophils 0.22 Absolute Basophils 0.04 Sodium 143 Potassium 4.3 Chloride 110 H Carbon Dioxide 29.9 Anion Gap 3.1 BUN 22 H Creatinine 1.0 Est GFR (CKD-EPI 2020) 86.70 Glucose 94 Calcium 9.0 Magnesium 2.0 Total Bilirubin 0.52 AST 16 ALT 30 Alkaline Phosphatase 102 Total Protein 7.4 Albumin 3.8 Lipase 74 Urine Color Yellow Urine Clarity Clear Urine pH 5.5 Ur Specific Farrell 1.020 Urine Protein Negative Urine Ketones Negative Urine Blood Negative Urine Nitrite Negative Urine Bilirubin Negative Urine Urobilinogen 0.2 Ur Leukocyte Esterase Negative Urine Glucose Negative PFSH All Active Problems (Updated 11/23/24 @ 21:08 by Prudencio Melvin MD) Acute appendicitis (Acute) Metatarsalgia, right foot (Acute) Hallux limitus of right foot (Acute) Achilles tendon contracture, bilateral (Acute) Foot pain (Acute) Capsulitis (Acute) Conductive hearing loss in left ear (Acute) Otosclerosis of left ear (Acute) Family history of prostate cancer (Acute) father Chronic prostatitis/chronic pelvic pain syndrome (Acute) Medical History Acute low back pain Olecranon bursitis, right elbow Bipolar 1 disorder Situational anxiety Knee joint pain Depression with anxiety Melanoma Surgical History S/P left knee arthroscopy H/O melanoma excision Family History Father Prostate cancer Skin cancer Social History Smoking/Tobacco Use Status: Never Smoking risk assessment performed?: Yes Alcohol Intake: current Alcohol Intake frequency: a few times a week Drug use: Occasionally Substance use type: marijuana Housing: house Do you feel safe at home: Yes Do you feel safe in your relationship?: Yes Time Spent with Patient Time Spent with Patient: <45 minutes Time was spent: preparing to see the patient(eg.review tests), indepentently in terpreting results, counseling the patient and care coordination
[2024-11-24] MEDS: Lactated Ringers 1,000 ML 100 ML IV (17:58)
--- NOTE | 2024-11-24 18:13 | W.ANESPOSTOP ---
Postoperative Evaluation Date, Time and Location Date Performed: 11/24/24 Time Performed: 18:13 Patient Location: Med/Surg Vital Signs Most Recent Imported Vital Signs: Most Recent Vital Signs Temp Pulse Resp BP Pulse Ox 36.5 C 76 16 128/84 97 11/24/24 17:55 11/24/24 17:55 11/24/24 17:55 11/24/24 17:55 11/24/24 17:55 Pain Score Most Recent Pain Score: Most Recent Pain Score Pain Level [Head] 4 11/24/24 12:44 Pain Level [Generalized] 0 11/24/24 07:34 Pain Level 0 11/24/24 16:30 Assessment Mental Status: Awake (Alert & Oriented to Patient Baseline) Airway and Respiratory Function: Patent airway with normal (patient baseline) respiratory exam Cardiovascular Function: Hemodynamically Stable Hydration Status: Adequately Hydrated Nausea & Vomiting: No Nausea or Vomiting Pain: Pain is tolerable per patient Peripheral Nerve Block: Patient did not receive a nerve block
[2024-11-24] MEDS: Lactated Ringers 1,000 ML 125 ML IV ×2 (18:24→22:14)
[2024-11-24] MEDS: MORPHine 2 MG/ML SYR IVP ×2 (18:31→22:22)
--- NOTE | 2024-11-24 19:30 | PDOC.CMIN ---
Date of service: 11/24/24 Time of Service: 19:31 Care Management Initial Assmt Initial Assessment Reason for Hospitalization: acute appendicitis Functional Status/Living Situation Patient Presentation: Sahil was lying in bed when CM met with him. He stated that he had just returned from surgery, and per report, everything went well. He stated that per MD, if he feels well, he can discharge home this evening. He stated that he is looking forward to returning home. He lives in [place] with his , and works as a contractor. He is independent at baseline; no indication for services upon discharge. CM will continue to follow. Town of Residence: [place] Resides with: Spouse Significant Other/Family: Local Employment Status: Employed Instrumental Activities of Daily Living (ADLs): Independent Activities/Hobbies/SocialSupport: Sahil has a snowboarding trip scheduled for next week, that he is hoping to be able to attend. Medications Medication Management: No Issues/Barriers identified Advance Directives Advance Directives: Do you have an Advance Directive: Y 05/23/23 10:07 AD On File at [facility]: N 05/23/23 10:07 Date Asked 11/23/24 11/23/24 18:49 AD Date Reviewed COLST On File at [facility] COLST Date Scanned Code Status Resuscitation Status Full Code Insurance Coverage/Financial Issues Insurance: [employer] Care Team Visit Care Team Role Provider Type Luis Noble MD Primary Care Provider NON-[facility] STAFF PHYSICIAN Prudencio Melvin MD Emergency Provider [facility] STAFF PHYSICIAN Landen Lara MD Admit Provider [facility] STAFF PHYSICIAN Attending Provider Discharge Potential Discharge Needs: Surgical F/U Appt Anticipated Barriers to Discharge: None Identified Patient/Family Education Needs: Review discharge instructions, discuss Ask Me Three Transportation: Private vehicle Plan: Anticipate Sahil will return home once medically cleared. He will transport home via private vehicle when ready. He will follow up with surgical services and his discharge plan of care. CM will continue to follow. Social Determinants of Health Screening Social Determinants of Health last assessed: 11/24/24 Will the Patient Participate in the Screening?: Yes Do you worry about having a steady place to live?: no Problems where you live: no known problems In the past 12 months, have you had to go without electric, gas, oil or water in your home?: no Have you or anyone in your house had to go without enough food to eat?: no Has lack of transportation kept you from medical appointments or from doing things needed for daily living?: no Has anyone in your life made you feel unsafe or unsupported?: no How hard is it for you to pay for the very basics like food, housing, medical care, and heating? Would you say it is:: Not hard at all Do you want help finding or keeping work or a job?: I do not need or want help If for any reason you need help with day-to-day activities such as bathing, preparing meals, shopping, managing finances, etc., do you get the help you need?: I don?t need any help How often do you feel lonely or isolated from those around you?: Rarely Do you speak a language other than Armenian at home?: No Does the patient want assistance with any of the above?: No Health Related Social Needs Health related social needs: feeling lonely/isolated (Z60.8) PFSH All Active Problems (Updated 11/23/24 @ 21:08 by Prudencio Melvin MD) Acute appendicitis (Acute) Metatarsalgia, right foot (Acute) Hallux limitus of right foot (Acute) Achilles tendon contracture, bilateral (Acute) Foot pain (Acute) Capsulitis (Acute) Conductive hearing loss in left ear (Acute) Otosclerosis of left ear (Acute) Family history of prostate cancer (Acute) father Chronic prostatitis/chronic pelvic pain syndrome (Acute) Medical History Acute low back pain Olecranon bursitis, right elbow Bipolar 1 disorder Situational anxiety Knee joint pain Depression with anxiety Melanoma Surgical History S/P left knee arthroscopy H/O melanoma excision Family History Father Prostate cancer Skin cancer Social History Smoking/Tobacco Use Status: Never Smoking risk assessment performed?: Yes Alcohol Intake: current Alcohol Intake frequency: a few times a week Drug use: Occasionally Substance use type: marijuana Housing: house Do you feel safe at home: Yes Do you feel safe in your relationship?: Yes
[2024-11-24] MEDS: lamoTRIgine 25 MG TAB PO (22:13)
[2024-11-25] MEDS: Ketorolac 15 MG/ML VIAL IVP
[2024-11-25] MEDS: ACETAMINOPHEN 1,000 MG/100 ML BAG 400 MG IVPB ×2 (04:19→10:08)
[2024-11-25] MEDS: Heparin 5,000 UNITS/ML VIAL 5000 UNITS SC (05:19)
[2024-11-25 08:28] VITALS: BP 125/89; PULSE 77; RESP 16; TEMP 36.4; O2SAT 99
[2024-11-25] MEDS: lamoTRIgine 25 MG TAB PO (08:36)
[2024-11-25] MEDS: Omega-3 Fatty Acids 1000 MG CAP PO (08:36)
[2024-11-25] MEDS: Ascorbic Acid 500 MG TAB 1000 MG PO (08:36)
[2024-11-25] MEDS: Multivitamin TAB 1 TAB PO (08:36)
--- NOTE | 2024-11-25 09:31 | W.NUTRFU ---
Date of service: 11/25/24 Time of Service: 09:31 Nutrition Note NOTE: PT post op today with anticipated discharge home. He was admitted after a few days of abdominal pain and found to have appendicitis which involved an appendectomy yesterday. Pt assigned clear liquids this morning at breakfast and will advance today as tolerated. If no complications, expects to go home today. Pt with stable weight, labs with no nutritional concerns. Initially assessed as low nutrition risk. Will monitor the remainder of admission for any changes Time Spent in Nutritional Counseling and Treatment: 0
[2024-11-25] MEDS: Normal Saline Flush 10 ML SYR IVP ×3 (10:08→11:24)
--- NOTE | 2024-11-25 10:13 | CMDISCH_ITS ---
Date of service: 11/25/24 Time of Service: 10:13 LACE Index Scoring Tool Questions: Length of Stay (in days): 2 Was the patient admitted via the E.D.?: Yes E.D. Visits: 0 Answers: Total Score: 5 Risk of Readmission: Low Risk Care Management Discharge Plan Reason for Hospitalization: acute appendicitis Discharge Plan: Sahil returned home today with no new services. His drove him home via private vehicle. He will follow up with surgical services and his discharge plan of care. He is happy to be going home. Patient/Family Education Needs: Review discharge instructions and limitations, discussion of self care needs including ask me three. SDOH Health Related Social Needs: Health related social needs feeling lonely/isolated (Z 60.8)
[2024-11-25 11:23] VITALS: BP 125/88; PULSE 66; RESP 16; TEMP 36.6; O2SAT 99
--- NOTE | 2024-11-27 12:28 | W.ED.FU ---
Date of service: 11/27/24 Time of Service: 12:28 Follow Up Plan: This patient left a voicemail on my office number. I called him back. He was concerned as his insurance company was reportedly denying his claim. I forwarded his voicemail to Joselo Ac from the care management team requesting her assistance and following up. When I spoke to the patient on the phone I also advised him to reach out to our clinical documentation department with any concerns. I did apologize that he was having difficulties with his insurance. He reported that he was slightly sore but otherwise doing quite well.
== END 2024-11-25 12:00 | disposition home or self-care (01) ==
LOC: ER 21:08 → MS 11-24 07:51
PROVIDERS: Admitting Provider Student in an Organized Health Care Education/Training Program; Emergency Provider Emergency Medicine; PCP Family Medicine; Visit Provider Student in an Organized Health Care Education/Training Program
PROC: 0DTJ4ZZ Resection of Appendix, Percutaneous Endoscopic Approach (ICD-10-PCS; CPT 44970; principal; 2024-11-24 13:45)
DX: K35.80 Unspecified acute appendicitis (principal); F31.9 Bipolar disorder, unspecified; F41.8 Other specified anxiety disorders; N41.1 Chronic prostatitis; H90.12 Conductive hearing loss, unilateral, left ear, with unrestricted hearing on the contralateral side
CPT/HCPCS: 44970; 00123; 80053; 83690; 96361; 96365; 96366; 96367; 96372; 96375; 96376; 99285; 74177; 81003; 83735; 85025; 88304; G0378; J0131; J0665; J0666; J1100; J1644; J1885; J2003; J2250; J2270; J2405; J2543; J2704; J3010; J3490

== ENCOUNTER 2024-12-16 04:35 | Outpatient (CLI) | payer OTHER, SELFPAY ==
[2024-12-16 23:01] LABS: PSA, Screening 1.2 ng/mL (<=3.5)
== END 2024-12-16 04:36 | disposition home or self-care (01) ==
LOC: LBO 04:35
PROVIDERS: PCP Family Medicine; Visit Provider Nurse Practitioner Gerontology
DX: R39.9 Unspecified symptoms and signs involving the genitourinary system (principal); N41.1 Chronic prostatitis; G89.4 Chronic pain syndrome; Z80.42 Family history of malignant neoplasm of prostate
CPT/HCPCS: 36415; 84153

== ENCOUNTER 2025-07-07 15:56 | Outpatient (REF) | payer OTHER, SELFPAY ==
[2025-07-07 16:31] LABS: Anion Gap 8.9 mmol/L (3-11); BUN 27 mg/dL (7-18); CO2 27.1 mmol/L (21.0-32.0); Calcium 9.2 mg/dL (8.5-10.1); Chloride 105 mmol/L (98-107); Estimated GFR 97.78 (mL/min/1.73m2); Glucose 89 mg/dL (74-106); Potassium 4.7 mmol/L (3.5-5.1); Sodium 141 mmol/L (136-145); TSH (W/Ref FT4) 1.94 uIU/mL (0.36-3.74)
[2025-07-07 16:45] LABS: Lithium 0.5 mmol/L (0.6-1.2)
== END 2025-07-07 15:57 | disposition home or self-care (01) ==
LOC: NCHCN 15:56
PROVIDERS: PCP Family Medicine; Visit Provider Family Medicine
DX: F31.9 Bipolar disorder, unspecified (principal)
CPT/HCPCS: 80048; 80178; 84443

== ENCOUNTER 2025-10-06 02:36 | Outpatient (CLI) | payer OTHER, SELFPAY ==
[2025-10-14 19:26] LABS: Testosterone, Free 62.7 pg/mL (35.0-155.0)
== END 2025-10-06 02:37 | disposition home or self-care (01) ==
LOC: LBO 02:36
PROVIDERS: PCP Family Medicine; Visit Provider Family Medicine
DX: R68.82 Decreased libido (principal)
CPT/HCPCS: 36415; 84402; 84403